=== PATIENT | male | born 1945 | race Caucasian/White ===

== ENCOUNTER 2019-01-10 05:51 | Day surgery (SDC) | payer MEDICARE, OTHER ==
[2019-01-10] MEDS ORDERED: Lactated Ringers 1,000 ML IV SCH (06:30)
[2019-01-10] MEDS ORDERED: MINERAL OIL LIGHT 10 ML FOR SURGERY ONE (07:02)
[2019-01-10] MEDS ORDERED: XYLOCAINE 1%/Epi 1:100000 MDV 20 ML ONE (07:02)
[2019-01-10] MEDS ORDERED: Lactated Ringers 1,000 ML IV ONE (07:02)
[2019-01-10] MEDS ORDERED: DIPRIVAN 200 MG/20 ML IV ONE (07:12)
[2019-01-10] MEDS ORDERED: Versed 2 MG/2 ML Injection ONE (07:12)
[2019-01-10] MEDS ORDERED: SUBLIMAZE 100 MCG/2 ML ONE (07:12)
[2019-01-10] MEDS ORDERED: Ketamine HCl 50 MG/ML ONE (07:27)
[2019-01-10] MEDS ORDERED: Ephedrine Sulfate 50 MG/ML ONE (07:31)
[2019-01-10 09:04] VITALS: O2SAT 93
[2019-01-10 09:25] VITALS: BP 140/83; PULSE 60
--- NOTE | 2019-01-11 07:50 | OP ---
SURGERY DATE/TIME: 01/10/2019 0716 PREOPERATIVE DIAGNOSIS: Skin lesion of the left ear at the helix and antihelix. POSTOPERATIVE DIAGNOSIS: Skin lesion of the left ear at the helix and antihelix. PROCEDURE: Excision of left auricular skin lesion x2 with split thickness skin graft harvest from left supraclavicular neck. SURGEON: Anuj Wallace M.D. ANESTHESIA: MAC. ESTIMATED BLOOD LOSS: 25 cc. COMPLICATIONS: None. SPECIMENS: 1) Left superior auricular skin lesion. 2) Left inferior auricular skin lesion. INDICATIONS: The patient is a 73 year-old male who was evaluated in the office for two bothersome left ear skin lesions. They were less than 1 cm. They were raised, scaly and the patient desired to have them removed. Risks, benefits and alternatives were discussed with the patient and he elected to proceed with surgery. FINDINGS: A 1 cm excision of the left helix. A 1 x 2 cm excision of the left antihelix. Skin graft harvest from the left supraclavicular area. DESCRIPTION OF PROCEDURE: The patient was placed supine. MAC anesthesia was induced. The head was turned to the right and the patient was prepped and draped in routine sterile fashion. Lidocaine with epinephrine was injected to both skin lesions at the left ear. One lesion was the helix and excision resulted in a 1 cm circular defect. One lesion was at the left antihelix and resulted in a 1 x 2 cm elliptical defect. Margins were approximately 3 mm at minimum. Both lesions were sent separately to pathology. The 2 x 3 cm area above the left clavicle was selected for donor site. Lidocaine with epinephrine was injected to the field. Split thickness skin graft was harvested. The graft was then sutured with chromic tacking sutures to each defect. Xeroform bolster was placed over both defects and sutured in place using Prolene suture. The patient tolerated the procedure well and returned to the recovery room in stable condition.
== END 2019-01-10 09:30 | disposition home or self-care (01) ==
LOC: SDC 05:51
PROVIDERS: ATTEND Surgery
DX: D23.22 Other benign neoplasm of skin of left ear and external auricular canal (principal); L57.0 Actinic keratosis; L57.8 Other skin changes due to chronic exposure to nonionizing radiation
CPT/HCPCS: 88305; 99100; J2250; J2704; J3010; A9270-GY

== ENCOUNTER 2024-01-04 10:10 | Day surgery (SDC) | payer MEDICARE ==
[~2024-01-04 10:10] MED LIST: XYLOCAINE 1% HCL 20 ML MDV ONE
[2024-01-04] MEDS: CEFAZOLIN 2 GM/100 ML NaCl 2 GM/100 ML IVPB IV SCH (10:20)
[2024-01-04] MEDS ORDERED: Triple Antibiotic Ointment ONE (14:19)
[2024-01-04 14:34] VITALS: BP 143/91; PULSE 53; RESP 16; TEMP 97.7; O2SAT 96
--- NOTE | 2024-01-07 12:42 | OP ---
SURGERY DATE/TIME: 01/04/2024 [id number] PREOPERATIVE DIAGNOSIS: Face lesions. POSTOPERATIVE DIAGNOSIS: Face lesions. PROCEDURES: 1) Shave excisional biopsy of forehead skin lesion 1 cm. 2) Excision of left chin skin lesion, 1 x 2 cm. SURGEON: Anuj Wallace MD. ANESTHESIA: Local. PATIENT CONDITION: Stable. COMPLICATIONS: None. SPECIMENS: Chin lesion, forehead lesion. INDICATIONS: The patient is a 78-year-old male that has left chin lesion just next to the labiomental fold that has bleeding that there is kind of a central pore surrounding erythema. Skin change concerning for skin cancer. Discussed with patient option of just doing a punch biopsy. However, due to the symptoms, he does desire just excision at this time and then, at the same time, he has a keratotic lesion of the forehead that he wants shaved. Discussed with patient scarring, cosmetic deformity, infection, bleeding, recurrence. He elected to proceed. FINDINGS: As below. DESCRIPTION OF PROCEDURE: Patient brought to the operating room and routinely positioned, prepared. A time-out performed. The lesions had been circled in preoperative holding area. Patient is awake and consents. The forehead lesion was anesthetized with local anesthetic and then, the scalpel shave excision mid depth is performed. Hemostatic satisfactory ointment, dressing applied. The other lesion had this pit centrally and some surrounding skin changes with encrusted blood that was cleaned off and this is just medial to the labiomental skin fold. The 1 x 2 cm elliptical excision was performed after a local anesthetic was injected. The skin was closed with 5-0 Vicryl suture and then Steri-Strips applied. All counts were correct. The patient tolerated the procedure well. The specimens were sent. RECOMMENDATION: Follow up in office in 2 weeks.
== END 2024-01-04 14:43 | disposition home or self-care (01) ==
LOC: SDC 10:10
PROVIDERS: ATTEND Surgery
DX: C44.319 Basal cell carcinoma of skin of other parts of face (principal)
CPT/HCPCS: J0690; A9270-GY